=== PATIENT | male | born 1990 | race Caucasian/White ===

== ENCOUNTER 2019-12-24 23:13 | Emergency (ER) | payer MEDICAID ==
--- NOTE | 2019-12-25 00:16 | EDM.PDOC ---
ED HPI GENERAL MEDICAL PROBLEM - General Chief Complaint: Abdominal Pain Stated Complaint: ABDOMINAL PAIN Time Seen by Provider: 12/25/19 00:15 - History of Present Illness INITIAL COMMENTS - FREE TEXT/NARRATIVE: 29-year-old male presents the emergency room with abdominal pain. This pain is been progressing for the last 4 to 5 hours. Is periumbilical and midepigastric in nature. It is not associated with any nausea or vomiting he did have a loose stool today and he has no recent history of constipation. He does get heartburn intermittently Tums does not seem to help too much. 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 Middle Abdomen Pain Score (Numeric/FACES): 8 - Related Data Allergies Allergy/AdvReac Type Severity Reaction Status Date / Time codeine Allergy Hives Verified 12/24/19 23:41 Home Meds: Home Meds Lansoprazole [Prevacid] 30 mg PO Q24H #30 capsule. 12/25/19 [Rx] Sucralfate [Carafate] 1 gm PO ASDIRECTED #24 tablet 12/25/19 [Rx] Past Medical History Musculoskeletal History: Reports: Back Pain, Chronic, Other (See Below) Other Musculoskeletal History: neurofibromitosis type 2 - Past Surgical History GI Surgical History: Reports: Appendectomy, Cholecystectomy Musculoskeletal Surgical History: Reports: Other (See Below) Other Musculoskeletal Surgeries/Procedures:: left FA surgery Social & Family History - Tobacco Use Smoking Status *Q: Current Some Day Smoker Years of Tobacco use: 7 Packs/Tins Daily: 0.5 - Caffeine Use Caffeine Use: Reports: Coffee, Energy Drinks, Soda, Tea - Recreational Drug Use Recreational Drug Use: No ED ROS GENERAL - Review of Systems Review Of Systems: See Below Constitutional: Reports: No Symptoms HEENT: Reports: No Symptoms Respiratory: Reports: No Symptoms Cardiovascular: Reports: No Symptoms GI/Abdominal: Reports: Abdominal Pain, Diarrhea. Denies: Constipation, Nausea, Vomiting : Reports: No Symptoms Musculoskeletal: Reports: No Symptoms Skin: Reports: No Symptoms Neurological: Reports: No Symptoms ED EXAM, GI/ABD - Physical Exam Exam: See Below Exam Limited By: No Limitations General Appearance: Alert, No Apparent Distress Head: Atraumatic, Normocephalic Neck: Normal Inspection, Supple, Non-Tender, Full Range of Motion. No: Lymphadenopathy (L), Lymphadenopathy (R) Respiratory/Chest: No Respiratory Distress, Lungs Clear, Normal Breath Sounds Cardiovascular: Regular Rate, Rhythm, No Edema, No Murmur GI/Abdominal Exam: Normal Bowel Sounds, Soft, Tender (It is mostly in the periumbilical and epigastric area no guarding rigidity or rebound noted he has what is consistent with pain pump left lower quadrant) Back Exam: Normal Inspection. No: CVA Tenderness (L), CVA Tenderness (R) Extremities: Normal Inspection, No Pedal Edema Neurological: Alert, Oriented, Normal Cognition Course - Vital Signs Last Recorded V/S: Last Vital Signs Temp 36.0 C L 12/24/19 23:38 Pulse 95 12/24/19 23:38 Resp 20 12/24/19 23:38 BP 133/97 H 12/24/19 23:38 Pulse Ox 97 12/24/19 23:38 - Orders/Labs/Meds Orders: Active Orders 24 hr Category Date Time Status Abdomen 2V AP Flat Upright [CR] Stat Exams 12/25/19 00:26 Taken Labs: Laboratory Tests 12/25/19 12/25/19 12/25/19 Range/Units 00:45 00:45 01:00 WBC 12.48 H (4.23-9.07) K/mm3 RBC 6.08 (4.63-6.08) M/mm3 Hgb 17.6 H (13.7-17.5) gm/dl Hct 51.0 (40.1-51.0) % MCV 83.9 (79.0-92.2) fl MCH 28.9 (25.7-32.2) pg MCHC 34.5 (32.2-35.5) g/dl RDW Std Deviation 41.8 (35.1-43.9) fL Plt Count 274 (163-337) K/mm3 MPV 9.7 (9.4-12.3) fl Neut % (Auto) 67.6 (34.0-67.9) % Lymph % (Auto) 20.2 L (21.8-53.1) % [place] % (Auto) 7.5 (5.3-12.2) % Eos % (Auto) 4.1 (0.8-7.0) Baso % (Auto) 0.4 (0.1-1.2) % Neut # (Auto) 8.45 H (1.78-5.38) K/mm3 Lymph # (Auto) 2.52 (1.32-3.57) K/mm3 [place] # (Auto) 0.93 H (0.30-0.82) K/mm3 Eos # (Auto) 0.51 (0.04-0.54) K/mm3 Baso # (Auto) 0.05 (0.01-0.08) K/mm3 Manual Slide Review Abnormal smear Sodium 140 (136-145) mEq/L Potassium 3.9 (3.5-5.1) mEq/L Chloride 105 (98-107) mEq/L Carbon Dioxide 25 (21-32) mEq/L Anion Gap 13.9 (5-15) BUN 17 (7-18) mg/dL Creatinine 0.8 (0.7-1.3) mg/dL Est Cr Clr Drug Dosing 138.14 mL/min Estimated GFR (MDRD) > 60 (>60) mL/min BUN/Creatinine Ratio 21.3 H (14-18) Glucose 94 (74-106) mg/dL Calcium 9.4 (8.5-10.1) mg/dL Total Bilirubin 0.3 (0.2-1.0) mg/dL AST 10 L (15-37) U/L ALT 20 (16-63) U/L Alkaline Phosphatase 74 (46-116) U/L Total Protein 7.2 (6.4-8.2) g/dl Albumin 4.1 (3.4-5.0) g/dl Globulin 3.1 gm/dL Albumin/Globulin Ratio 1.3 (1-2) Lipase 50 L (73-393) U/L Urine Color Yellow (Yellow) Urine Appearance Clear (Clear) Urine pH 6.0 (5.0-8.0) Ur Specific [place] > or = 1.030 (1.005-1.030) Urine Protein Negative (Negative) Urine Glucose (UA) Negative (Negative) Urine Ketones Trace H (Negative) Urine Occult Blood Negative (Negative) Urine Nitrite Negative (Negative) Urine Bilirubin Negative (Negative) Urine Urobilinogen 0.2 (0.2-1.0) Ur Leukocyte Esterase Negative (Negative) Meds: Medications Discontinued Medications Generic Name Dose Route Start Last Admin Trade Name Freq PRN Reason Stop Dose Admin Al Hydroxide/Mg Hydroxide 30 0 ml 12/25/19 00:28 12/25/19 00:47 ml/ Lidocaine HCl 15 ml PO 12/25/19 00:29 45 ml ONETIME ONE Administration - Re-Assessments/Exams Free Text/Narrative Re-Assessment/Exam: 12/25/19 01:54 The patient is doing much better after the GI cocktail and we will discharge him home with Carafate and start PPI therapy. Laboratory evaluation is unrevealing x-rays of his abdomen showed no acute intra-abdominal process he is got a pain pump in place and a nerve stimulator in place. Departure - Departure Time of Disposition: 01:56 [facility] 05 Clinical Impression: Dyspepsia - Discharge Information Prescriptions: Lansoprazole [Prevacid] 30 mg PO Q24H #30 capsule. Sucralfate [Carafate] 1 gm PO ASDIRECTED #24 tablet Referrals: PCP,None [Primary Care Provider] - Forms: ED Department Discharge Additional Instructions: Return to the emergency room with any questions problems or worsening symptoms. Follow-up in the hospital clinic in 2 weeks for recheck. Take the medications as directed. Sepsis Event Note - Evaluation Sepsis Screening Result: No Definite Risk - Focused Exam Vital Signs: Vital Signs Temp Pulse Resp BP Pulse Ox 12/24/19 23:38 36.0 C L 95 20 133/97 H 97 Date Exam was Performed: 12/25/19 Time Exam was Performed: 01:54 - My Orders Last 24 Hours: My Active Orders 12/25/19 00:26 Abdomen 2V AP Flat Upright [CR] Stat - Assessment/Plan Last 24 Hours: My Active Orders 12/25/19 00:26 Abdomen 2V AP Flat Upright [CR] Stat
[2019-12-25] MEDS ORDERED: Alum Hydrox/Mag Hydrox/Simeth 30 ML, Lidocaine 2% 15 ML PO ONE ×2 (00:28)
[2019-12-25] MEDS ORDERED: Sucralfate Suspension 1 GM/10 ML Cup PO ONE (01:55)
--- NOTE | 2019-12-25 08:39 | CR ---
Abdomen: Supine and upright views of the abdomen were obtained. Comparison: No prior abdominal imaging. Electro-stimulating device is noted within the lower thoracic spine. Surgical clips are seen from previous cholecystectomy. Several calcifications are seen within the lower right pelvis compatible with phleboliths. No other abnormal calcifications are appreciated. Minimal scoliosis is noted within the spine. Bowel gas pattern is normal. Impression: 1. Findings as noted above. 2. Nothing acute is appreciated on two-view abdominal x-ray. Diagnostic code #2 This report was dictated in [place] Standard Time
== END 2019-12-25 02:06 | disposition home or self-care (01) ==
LOC: JD.ED 23:13
DX: R06.00 Dyspnea, unspecified (principal); F17.210 Nicotine dependence, cigarettes, uncomplicated; Z88.5 Allergy status to narcotic agent
CPT/HCPCS: 36415; 74019; 80053; 81003; 83690; 85025; 99284; A9270; 99283

== ENCOUNTER 2020-02-18 12:48 | Emergency (ER) | payer MEDICAID ==
--- NOTE | 2020-02-18 13:20 | EDM.PDOC ---
ED HPI GENERAL MEDICAL PROBLEM - General Chief Complaint: Genitourinary Problem Stated Complaint: UNABLE TO URINATE Time Seen by Provider: 02/18/20 13:10 - History of Present Illness INITIAL COMMENTS - FREE TEXT/NARRATIVE: 29-year-old male presents the emergency room unable to void. Patient noticed this this morning. He is attempted to void but only dribbles. Patient has a significant history of neurofibromatosis he recently had his pain pump changed from fentanyl to morphine. Patient does not have any ambulatory issues and is never had any problems with bowel or bladder control issues. He denies fevers or chills no significant discomfort. He denies fevers or chills no recent illnesses. Back Pain Score (Numeric/FACES): 9 - Related Data Allergies Allergy/AdvReac Type Severity Reaction Status Date / Time codeine Allergy Hives Verified 12/24/19 23:41 Home Meds: Home Meds Cyclobenzaprine [Flexeril] 10 mg PO DAILY 02/18/20 [History] Morphine Pump 1 applic DAILY 02/18/20 [History] Past Medical History Musculoskeletal History: Reports: Back Pain, Chronic, Other (See Below) Other Musculoskeletal History: neurofibromitosis type 2 - Past Surgical History GI Surgical History: Reports: Appendectomy, Cholecystectomy Musculoskeletal Surgical History: Reports: Other (See Below) Other Musculoskeletal Surgeries/Procedures:: left FA surgery Social & Family History - Caffeine Use Caffeine Use: Reports: Coffee, Energy Drinks, Soda, Tea ED ROS GENERAL - Review of Systems Review Of Systems: See Below Constitutional: Reports: No Symptoms. Denies: Fever, Chills Respiratory: Reports: No Symptoms Cardiovascular: Reports: No Symptoms GI/Abdominal: Reports: No Symptoms : Reports: Frequency, Urinary Retention Musculoskeletal: Reports: No Symptoms Neurological: Reports: No Symptoms ED EXAM, RENAL/ - Physical Exam Exam: See Below Exam Limited By: No Limitations General Appearance: Alert, No Apparent Distress Head: Atraumatic, Normocephalic Neck: Normal Inspection, Supple, Non-Tender, Full Range of Motion Respiratory/Chest: No Respiratory Distress, Lungs Clear, Normal Breath Sounds Cardiovascular: Regular Rate, Rhythm, No Edema, No Murmur GI/Abdominal: Normal Bowel Sounds, Soft, Other (Normal suprapubic discomfort no significant distention.) Back Exam: Normal Inspection. No: CVA Tenderness (L), CVA Tenderness (R) Extremities: Normal Inspection, Normal Range of Motion, Non-Tender Neurological: Alert, Oriented, Normal Cognition Course - Vital Signs Last Recorded V/S: Last Vital Signs Temp 37.1 C 02/18/20 13:20 Pulse 93 02/18/20 13:20 Resp 20 02/18/20 13:20 BP 127/86 02/18/20 13:20 Pulse Ox 98 02/18/20 13:20 - Orders/Labs/Meds Orders: Active Orders 24 hr Category Date Time Status Bladder Scan [RC] ASDIRECTED Care 02/18/20 13:20 Active Labs: Laboratory Tests 02/18/20 02/18/20 02/18/20 Range/Units 13:35 13:35 16:20 WBC 9.12 H (4.23-9.07) K/mm3 RBC 6.06 (4.63-6.08) M/mm3 Hgb 17.7 H (13.7-17.5) gm/dl Hct 50.7 (40.1-51.0) % MCV 83.7 (79.0-92.2) fl MCH 29.2 (25.7-32.2) pg MCHC 34.9 (32.2-35.5) g/dl RDW Std Deviation 41.3 (35.1-43.9) fL Plt Count 291 (163-337) K/mm3 MPV 10.0 (9.4-12.3) fl Neut % (Auto) 60.5 (34.0-67.9) % Lymph % (Auto) 28.3 (21.8-53.1) % [place] % (Auto) 8.6 (5.3-12.2) % Eos % (Auto) 2.0 (0.8-7.0) Baso % (Auto) 0.5 (0.1-1.2) % Neut # (Auto) 5.52 H (1.78-5.38) K/mm3 Lymph # (Auto) 2.58 (1.32-3.57) K/mm3 [place] # (Auto) 0.78 (0.30-0.82) K/mm3 Eos # (Auto) 0.18 (0.04-0.54) K/mm3 Baso # (Auto) 0.05 (0.01-0.08) K/mm3 Sodium 139 (136-145) mEq/L Potassium 3.9 (3.5-5.1) mEq/L Chloride 104 (98-107) mEq/L Carbon Dioxide 25 (21-32) mEq/L Anion Gap 13.9 (5-15) BUN 11 (7-18) mg/dL Creatinine 0.9 (0.7-1.3) mg/dL Est Cr Clr Drug Dosing 126.66 mL/min Estimated GFR (MDRD) > 60 (>60) mL/min BUN/Creatinine Ratio 12.2 L (14-18) Glucose 89 (74-106) mg/dL Calcium 8.8 (8.5-10.1) mg/dL Total Bilirubin 0.4 (0.2-1.0) mg/dL AST 11 L (15-37) U/L ALT 21 (16-63) U/L Alkaline Phosphatase 77 (46-116) U/L Total Protein 7.4 (6.4-8.2) g/dl Albumin 4.1 (3.4-5.0) g/dl Globulin 3.3 gm/dL Albumin/Globulin Ratio 1.2 (1-2) Urine Color Yellow (Yellow) Urine Appearance Clear (Clear) Urine pH 5.5 (5.0-8.0) Ur Specific [place] > or = 1.030 (1.005-1.030) Urine Protein Negative (Negative) Urine Glucose (UA) Negative (Negative) Urine Ketones Negative (Negative) Urine Occult Blood Negative (Negative) Urine Nitrite Negative (Negative) Urine Bilirubin 1+ H (Negative) Urine Urobilinogen 0.2 (0.2-1.0) Ur Leukocyte Esterase Negative (Negative) Meds: Medications Discontinued Medications Generic Name Dose Route Start Last Admin Trade Name Freq PRN Reason Stop Dose Admin Lactated Ringer's 1,000 mls @ 999 mls/hr 02/18/20 14:02 02/18/20 14:17 Ringers, Lactated IV 02/18/20 15:02 999 mls/hr .BOLUS ONE Administration Lactated Ringer's 1,000 mls @ 999 mls/hr 02/18/20 16:30 02/18/20 16:42 Ringers, Lactated IV 02/18/20 17:30 999 mls/hr .BOLUS ONE Administration - Re-Assessments/Exams Free Text/Narrative Re-Assessment/Exam: 02/18/20 14:09 Bladder scan is only 130 cc this was repeated several times. We will try some IV fluids still awaiting labs 02/18/20 18:03 We gave the patient a total of 2 L IV fluid. We did get a urine. This was not suggestive of infectious process. I suspect a lot of his issues are coming from his morphine pain pump they may need to back the dose off I am not sure he is feeling exactly what is going on also is not drinking enough fluids. Reviewed the situation with Dr. Anthony, urologist at [facility] who agrees with the evaluation and disposition. Departure - Departure Time of Disposition: 18:04 Disposition: Home, Self-Care 01 Clinical Impression: Urinary problem in male - Discharge Information Referrals: Mariajose Sanches MD [Primary Care Provider] - Forms: ED Department Discharge Additional Instructions: Turn to the emergency room with any questions problems or worsening symptoms. Call your pain doctor tomorrow and see if maybe decreasing the morphine might help a little bit. Push lots of fluids preferably non-caffeinated and do not get too much sugar with the fluids. Follow-up with your local healthcare provider early next week for recheck. Sepsis Event Note - Focused Exam Vital Signs: Vital Signs Temp Pulse Resp BP Pulse Ox 02/18/20 13:20 37.1 C 93 20 127/86 98 Date Exam was Performed: 02/18/20 Time Exam was Performed: 18:02 - My Orders Last 24 Hours: My Active Orders 02/18/20 13:20 Bladder Scan [RC] ASDIRECTED - Assessment/Plan Last 24 Hours: My Active Orders 02/18/20 13:20 Bladder Scan [RC] ASDIRECTED
[2020-02-18] MEDS ORDERED: Lactated Ringers 1,000 ML IV ONE ×2 (14:02→16:30)
== END 2020-02-18 18:14 | disposition home or self-care (01) ==
LOC: JD.ED 12:48
DX: N39.8 Other specified disorders of urinary system (principal); Z88.5 Allergy status to narcotic agent; Z90.49 Acquired absence of other specified parts of digestive tract
CPT/HCPCS: 36415; 51798; 80053; 81003; 85025; 99283; J7120

== ENCOUNTER 2020-04-29 20:58 | Emergency (ER) | payer MEDICAID ==
[2020-04-29] MEDS ORDERED: Ketorolac 60 MG/2 ML SDV IM ONE (21:09)
--- NOTE | 2020-04-29 21:11 | EDM.PDOC ---
ED HPI GENERAL MEDICAL PROBLEM - General Chief Complaint: Headache Stated Complaint: HEADACHE/BLURRY VISION Time Seen by Provider: 04/29/20 21:09 Source of Information: Reports: Patient History Limitations: Reports: No Limitations - History of Present Illness INITIAL COMMENTS - FREE TEXT/NARRATIVE: The patient is an unfortunate 29-year-old male who presents the emerge ncy department today with complaint of a frontal headache. Patient reports that this headache started 2 hours prior to arrival and is "similar to previous headaches". Patient reports he has had no nausea no vomiting no fever no chills no cough no congestion no shortness of breath no other neurologic symptoms the patient reports that he did take Aleve at home which normally alleviates his headaches time it did not so he came to the emergency department for evaluation Headache Pain Score (Numeric/FACES): 10 - Related Data Allergies Allergy/AdvReac Type Severity Reaction Status Date / Time codeine Allergy Severe Hives Verified 04/29/20 21:08 Home Meds: Home Meds Cyclobenzaprine [Flexeril] 10 mg PO DAILY 02/18/20 [History] Morphine Pump 1 applic DAILY 02/18/20 [History] Tamsulosin [Flomax] 0.4 mg PO DAILY 04/29/20 [History] Past Medical History Musculoskeletal History: Reports: Back Pain, Chronic, Other (See Below) Other Musculoskeletal History: neurofibromitosis type 2 - Past Surgical History GI Surgical History: Reports: Appendectomy, Cholecystectomy Musculoskeletal Surgical History: Reports: Other (See Below) Other Musculoskeletal Surgeries/Procedures:: left FA surgery Social & Family History - Caffeine Use Caffeine Use: Reports: Coffee, Energy Drinks, Soda, Tea ED ROS GENERAL - Review of Systems Review Of Systems: See Below Constitutional: Denies: Fever, Chills GI/Abdominal: Denies: Nausea, Vomiting Neurological: Reports: Headache - Physical Exam Exam: See Below Exam Limited By: No Limitations General Appearance: Alert, WD/WN, Mild Distress Ears: Normal External Exam, Normal Canal, Hearing Grossly Normal, Normal TMs Nose: Normal Inspection, Normal Mucosa, No Blood Head Exam: Atraumatic, Normocephalic Neck: Normal Inspection, Supple, Non-Tender, Full Range of Motion Respiratory/Chest: No Respiratory Distress, Lungs Clear, Normal Breath Sounds, No Accessory Muscle Use, Chest Non-Tender Cardiovascular: Normal Peripheral Pulses, Regular Rate, Rhythm, No Edema, No Gallop, No JVD, No Murmur, No Rub GI/Abdominal: Normal Bowel Sounds, Soft, Non-Tender, No Organomegaly, No Distention, No Abnormal Bruit, No Mass Neuro Exam (Abbreviated): Alert, Oriented, CN II-XII Intact, Normal Cognition, Normal Gait, Normal Reflexes, No Motor/Sensory Deficits Extremities: Normal Inspection Skin Exam: Warm, Dry Course - Vital Signs Last Recorded V/S: Last Vital Signs Temp 98.2 F 04/29/20 21:14 Pulse 89 04/29/20 21:14 Resp 20 04/29/20 21:14 BP 126/87 04/29/20 21:14 Pulse Ox 98 04/29/20 21:14 - Orders/Labs/Meds Meds: Medications Discontinued Medications Generic Name Dose Route Start Last Admin Trade Name Kimberly PRN Reason Stop Dose Admin Ketorolac Tromethamine 60 mg 04/29/20 21:09 04/29/20 21:20 Toradol IM 04/29/20 21:10 60 mg ONETIME ONE Administration - Re-Assessments/Exams Free Text/Narrative Re-Assessment/Exam: 04/29/20 21:43 His pain is resolved we will discharged home Departure - Departure Time of Disposition: 21:43 Disposition: Home, Self-Care 01 Clinical Impression: Headache Qualifiers: Headache type: unspecified Headache chronicity pattern: acute headache Intractability: not intractable Qualified Code(s): R51 - Headache - Discharge Information Referrals: PCP,None [Primary Care Provider] - Forms: ED Department Discharge Additional Instructions: Home, rest, return as needed for worsening condition Sepsis Event Note (ED) - Focused Exam Vital Signs: Vital Signs Temp Pulse Resp BP Pulse Ox 04/29/20 21:14 98.2 F 89 20 126/87 98
== END 2020-04-29 21:54 | disposition home or self-care (01) ==
LOC: JD.ED 20:58
DX: R51 Headache (principal); Z88.5 Allergy status to narcotic agent; Z79.899 Other long term (current) drug therapy
CPT/HCPCS: 96372; 99283; J1885

== ENCOUNTER 2020-04-30 12:15 | Emergency (ER) | payer MEDICAID ==
[2020-04-30] MEDS ORDERED: Metoclopramide 10 MG/2 ML SDV IVPUSH ONE (12:24)
[2020-04-30] MEDS ORDERED: Sodium Chloride 0.9% 10 ML Syringe FLUSH PRN (12:24)
[2020-04-30] MEDS ORDERED: diphenhydrAMINE 50 MG/ML SDV IVPUSH ONE (12:24)
[2020-04-30] MEDS ORDERED: Sodium Chloride 0.9% 1,000 ML IV ONE (12:24)
--- NOTE | 2020-04-30 12:34 | EDM.PDOC ---
ED HPI GENERAL MEDICAL PROBLEM - General Chief Complaint: Headache Stated Complaint: HEADACHE Time Seen by Provider: 04/30/20 12:32 Source of Information: Reports: Patient History Limitations: Reports: No Limitations - History of Present Illness INITIAL COMMENTS - FREE TEXT/NARRATIVE: The patient is an unfortunate 29-year-old male who presents to the emergency department they with complaint of headache. Patient reports he has had headache for the past 2 days he was seen here in the emergency department yesterday was given a shot of Toradol which improved his symptoms and he was discharged home. The patient reports that he has neurofibromatosis and has had tumor in the past. The patient reports that he awoke approximately 4 AM this morning the headache had returned worsen so he presented again to the emergency department today for reevaluation no fever, no chills, no chest pain, no hemiplegia, no blurred vision, no chest pain, no shortness of breath patient reports his headache is "similar to previous headaches". 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 Musculoskeletal History: Reports: Back Pain, Chronic, Other (See Below) Other Musculoskeletal History: neurofibromitosis type 2 - Past Surgical History GI Surgical History: Reports: Appendectomy, Cholecystectomy Musculoskeletal Surgical History: Reports: Other (See Below) Other Musculoskeletal Surgeries/Procedures:: left FA surgery Social & Family History - Family History Family Medical History: Noncontributory - Tobacco Use Smoking Status *Q: Current Every Day Smoker Years of Tobacco use: 10 Packs/Tins Daily: 0.5 - Caffeine Use Caffeine Use: Reports: Coffee, Energy Drinks, Soda, Tea ED ROS GENERAL - Review of Systems Review Of Systems: See Below Constitutional: Denies: Fever, Chills Neurological: Reports: Headache. Denies: Confusion, Dizziness - Physical Exam Exam: See Below Exam Limited By: No Limitations General Appearance: Alert, WD/WN, Mild Distress Ears: Normal External Exam, Normal Canal, Hearing Grossly Normal, Normal TMs Nose: Normal Inspection, Normal Mucosa, No Blood Head Exam: Atraumatic, Normocephalic Neck: Normal Inspection, Supple, Non-Tender, Full Range of Motion Respiratory/Chest: No Respiratory Distress, Lungs Clear, Normal Breath Sounds, No Accessory Muscle Use, Chest Non-Tender Cardiovascular: Normal Peripheral Pulses, Regular Rate, Rhythm, No Edema, No Gallop, No JVD, No Murmur, No Rub GI/Abdominal: Normal Bowel Sounds, Soft, Non-Tender, No Organomegaly, No Distention, No Abnormal Bruit, No Mass Neuro Exam (Abbreviated): Alert, Oriented, CN II-XII Intact, Normal Cognition, Normal Gait, Normal Reflexes, No Motor/Sensory Deficits Extremities: Normal Inspection, Normal Range of Motion, Non-Tender, No Pedal Vance ma, Normal Capillary Refill Skin Exam: Warm, Dry Course - Vital Signs Last Recorded V/S: Last Vital Signs Temp 97.9 F 04/30/20 12:23 Pulse 90 04/30/20 12:23 Resp 16 04/30/20 12:23 BP 132/89 04/30/20 12:23 Pulse Ox 95 04/30/20 12:23 - Orders/Labs/Meds Orders: Active Orders 24 hr Category Date Time Status Sodium Chloride 0.9% [Saline Flush] Med 04/30/20 12:24 Active 10 ml FLUSH ASDIRECTED PRN Saline Lock Insert [OM.PC] Stat Oth 04/30/20 12:23 Ordered Medication Orders Sodium Chloride (Saline Flush) 10 ml FLUSH ASDIRECTED PRN PRN Reason: Keep Vein Open Last Admin: 04/30/20 12:47 Dose: 10 ml Documented by: BROCK Meds: Medications Generic Name Dose Route Start Last Admin Trade Name Freq PRN Reason Stop Dose Admin Sodium Chloride 10 ml 04/30/20 12:24 04/30/20 12:47 Saline Flush FLUSH 10 ml ASDIRECTED PRN Administration Keep Vein Open Discontinued Medications Generic Name Dose Route Start Last Admin Trade Name Freq PRN Reason Stop Dose Admin Diphenhydramine HCl 25 mg 04/30/20 12:24 04/30/20 12:47 Benadryl IVPUSH 04/30/20 12:25 25 mg ONETIME ONE Administration Sodium Chloride 1,000 mls @ 1,000 mls/hr 04/30/20 12:24 04/30/20 12:42 Normal Saline IV 04/30/20 13:23 1,000 mls/hr ONETIME ONE Administration Metoclopramide HCl 10 mg 04/30/20 12:24 04/30/20 12:44 Reglan IVPUSH 04/30/20 12:25 10 mg ONETIME ONE Administration - Radiology Interpretation Free Text/Narrative:: CT head shows "impression: #1 prominent cisterna magna believed to represent normal variant. #2 sinus findings which are most likely chronic. #3 no acute intracranial abnormality is appreciated." Departure - Departure Time of Disposition: 13:32 Disposition: Home, Self-Care 01 Condition: Good Clinical Impression: Migraine - Discharge Information Referrals: PCP,None [Primary Care Provider] - Forms: ED Department Discharge Additional Instructions: Home, rest, return as needed for worsening condition Sepsis Event Note (ED) - Evaluation Sepsis Screening Result: No Definite Risk - Focused Exam Vital Signs: Vital Signs Temp Pulse Resp BP Pulse Ox 04/30/20 12:23 97.9 F 90 16 132/89 95 - My Orders Last 24 Hours: My Active Orders 04/30/20 12:23 Saline Lock Insert [OM.PC] Stat 04/30/20 12:24 Sodium Chloride 0.9% [Saline Flush] 10 ml FLUSH ASDIRECTED PRN - Assessment/Plan Last 24 Hours: My Active Orders 04/30/20 12:23 Saline Lock Insert [OM.PC] Stat 04/30/20 12:24 Sodium Chloride 0.9% [Saline Flush] 10 ml FLUSH ASDIRECTED PRN
--- NOTE | 2020-04-30 13:28 | CT ---
Head CT Technique: Multiple axial sections through the brain were obtained. Intravenous contrast was not utilized. Comparison: No prior intracranial imaging is available. Findings: Prominent cisterna magna is seen which is felt to be a normal variant. Ventricles along with basal cisterns and sulci over the convexities are within normal limits. No abnormal parenchymal densities are seen. No evidence of intracranial hemorrhage. No midline shift or mass-effect is appreciated. Bone window settings were reviewed which shows mild mucosal thickening within the left frontal and ethmoid sinuses. No air-fluid levels are seen. No acute mastoid findings are seen. No acute calvarial abnormality is seen. Impression: 1. Prominent cisterna magna believed to represent normal variant. 2. Sinus findings which are most likely chronic. 3. No acute intracranial abnormality is appreciated. Diagnostic code #2 This report was dictated in MDT
== END 2020-04-30 14:04 | disposition home or self-care (01) ==
LOC: JD.ED 12:15
DX: G43.909 Migraine, unspecified, not intractable, without status migrainosus (principal); F17.210 Nicotine dependence, cigarettes, uncomplicated; Z88.5 Allergy status to narcotic agent; Z79.899 Other long term (current) drug therapy
CPT/HCPCS: 70450; 96374; 96375; 99284; J1200; J2765; J7030

== ENCOUNTER 2020-05-15 10:43 | Emergency (ER) | payer MEDICAID ==
[2020-05-15] MEDS ORDERED: Acetaminophen/Butalbital/Caffeine 325-50-40 MG Tab PO ONE (11:18)
--- NOTE | 2020-05-15 11:30 | EDM.PDOC ---
ED HPI GENERAL MEDICAL PROBLEM - General Chief Complaint: Headache Stated Complaint: MIGRAINE Time Seen by Provider: 05/15/20 11:04 Source of Information: Reports: Patient, Old Records, RN Notes Reviewed History Limitations: Reports: No Limitations - History of Present Illness INITIAL COMMENTS - FREE TEXT/NARRATIVE: Patient is a 29-year-old male who presents to the ED for the evaluation of a migraine. Patient notes that this developed yesterday at about 4 PM, he has tried Tylenol and Aleve for pain relief, but this is not provided much relief. Patient states he was unable to get much sleep last night due to the pain, he states he only slept about 3 to 4 hours. Patient notes that it is typical of his normal migraines, but seems to be a little bit more severe. He states he has very sensitive to light, but not sounds. He denies any nausea or vomiting, he is not had any fevers/chills, cough/shortness of breath. Patient notes he was seen in this ER around 30 April, with a similar type headache and was given Toradol/Benadryl/Reglan and it seemed to help pretty well. Patient notes that his headache is in the frontal portion of his head, and it feels like someone is pounding his head with a sledgehammer. 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 He has no other medications at home to control his migraines. 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 Genitourinary History: Reports: Prostate Disorder Musculoskeletal History: Reports: Back Pain, Chronic Neurological History: Reports: Other (See Below) Other Neuro History: neurofibromatosis type 2 - Past Surgical History GI Surgical History: Reports: Appendectomy, Cholecystectomy Musculoskeletal Surgical History: Reports: Other (See Below) Other Musculoskeletal Surgeries/Procedures:: left FA surgery Social & Family History - Family History Family Medical History: Noncontributory - Tobacco Use Smoking Status *Q: Current Every Day Smoker Years of Tobacco use: 15 Packs/Tins Daily: 0.5 - Caffeine Use Caffeine Use: Reports: Coffee, Soda - Recreational Drug Use Recreational Drug Use: No ED ROS GENERAL - Review of Systems Review Of Systems: Comprehensive ROS is negative, except as noted in HPI. - Physical Exam Exam: See Below Exam Limited By: No Limitations General Appearance: Alert, WD/WN, No Apparent Distress Eye Exam: Bilateral Eye: EOMI, Normal Inspection, PERRL Ears: Normal External Exam Nose: Normal Inspection Throat/Mouth: Normal Inspection Head Exam: Atraumatic, Normocephalic Neck: Normal Inspection Respiratory/Chest: No Respiratory Distress, Lungs Clear, Normal Breath Sounds, No Accessory Muscle Use, Chest Non-Tender Cardiovascular: Normal Peripheral Pulses, Regular Rate, Rhythm, No Murmur GI/Abdominal: Normal Bowel Sounds, Soft, Non-Tender, No Distention, No Mass Neuro Exam (Abbreviated): Alert, Oriented, CN II-XII Intact, Normal Cognition, No Motor/Sensory Deficits Extremities: Normal Inspection, Normal Capillary Refill Psychiatric: Normal Affect, Normal Mood Skin Exam: Warm, Dry, Intact, Normal Color, No Rash Course - Vital Signs Last Recorded V/S: Last Vital Signs Temp 98.3 F 05/15/20 10:52 Pulse 83 05/15/20 10:52 Resp 16 05/15/20 10:52 BP 144/81 H 05/15/20 10:52 Pulse Ox 94 L 05/15/20 10:52 - Orders/Labs/Meds Meds: Medications Discontinued Medications Generic Name Dose Route Start Last Admin Trade Name Freq PRN Reason Stop Dose Admin Acetaminophen/Butalbital/Caffeine 1 tab 05/15/20 11:18 05/15/20 11:25 Fioricet 325-50-40 Mg PO 05/15/20 11:19 1 tab ONETIME ONE Administration - Re-Assessments/Exams Free Text/Narrative Re-Assessment/Exam: 05/15/20 11:28 Patient presents to the ED for evaluation of his migraine, I did discuss options with him for treatment, and he would like to try Fioricet at this time, as he is tried many of the other medications available in this ER. If this works, I will try to get him a few tablets of this to take home so he can try to manage migraines at home. 05/15/20 12:09 Patient notes that he did get pretty good relief from the Fioricet. I will write a prescription for a few tablets of this, so he can hopefully get a hold of his neurologist for further evaluation and management. Departure - Departure Time of Disposition: 12:10 Disposition: Home, Self-Care 01 Condition: Good Clinical Impression: Headache Qualifiers: Headache type: unspecified Headache chronicity pattern: acute headache Intractability: not intractable Qualified Code(s): R51 - Headache - Discharge Information *PRESCRIPTION DRUG MONITORING PROGRAM REVIEWED*: Yes *COPY OF PRESCRIPTION DRUG MONITORING REPORT IN PATIENT BRIANA: No Instructions: General Headache Without Cause, [id number] Forms: ED Department Discharge Additional Instructions: You were evaluated in the ED for your headache. You were given a medication called Fioricet you have been given a prescription. This did seem to provide you pretty good relief of your symptoms. For this medication, to try to limit your headaches at home. You may take Fioricet at the onset of a headache, 1-2 tabs every 6 hours as needed, do not exceed more than 6 tabs per 24-hour time span. [facility] located near [facility], this pharmacy is only open from 12 to 4 PM on Sundays, you will need t o go there during this timeframe to obtain this medication and take as prescribed. Recommend that you go home and rest in a quiet, darkened room. Try also to keep well hydrated. Please return to the ED if your symptoms should change or worsen. Sepsis Event Note (ED) - Evaluation Sepsis Screening Result: No Definite Risk - Focused Exam Vital Signs: Vital Signs Temp Pulse Resp BP Pulse Ox 05/15/20 10:52 98.3 F 83 16 144/81 H 94 L
== END 2020-05-15 12:58 | disposition home or self-care (01) ==
LOC: JD.ED 10:43
DX: R51 Headache (principal); F17.210 Nicotine dependence, cigarettes, uncomplicated; Z88.5 Allergy status to narcotic agent; Z79.899 Other long term (current) drug therapy
CPT/HCPCS: 99283; A9270

== ENCOUNTER 2021-01-08 16:23 | Emergency (ER) | payer MEDICAID ==
[2021-01-08] MEDS ORDERED: Sodium Chloride 0.9% 10 ML Syringe FLUSH PRN (16:50)
[2021-01-08] MEDS ORDERED: diphenhydrAMINE 50 MG/ML SDV IVPUSH ONE (16:50)
[2021-01-08] MEDS ORDERED: Sodium Chloride 0.9% 1,000 ML IV ONE (16:50)
[2021-01-08] MEDS ORDERED: Metoclopramide 10 MG/2 ML SDV IVPUSH ONE (16:50)
[2021-01-08] MEDS ORDERED: Ketorolac 30 MG/ML SDV IVPUSH ONE (16:50)
--- NOTE | 2021-01-08 16:56 | EDM.PDOC ---
ED HPI GENERAL MEDICAL PROBLEM - General Chief Complaint: Headache Stated Complaint: BACK PAIN/MIGRAINE Time Seen by Provider: 01/08/21 16:41 Source of Information: Reports: Patient, RN Notes Reviewed History Limitations: Reports: No Limitations - History of Present Illness INITIAL COMMENTS - FREE TEXT/NARRATIVE: Patient is a 30-year-old male who presents to the ED for the evaluation of his migraine headache. He notes that this has been present for the last 5 hours. Patient does have a history of migraine headaches. 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 He does have a morphine pump for pain management. Is also complaining of a sharp stabbing pain in his left lower flank area he has not felt something like this before. He notes his headache is fairly typical for himself, not having any blurred vision or double vision, or any other neurological deficits. He has had no fevers or chills, cough or shortness of breath, or any other sick-like symptoms. He did try taking Tylenol at home but nothing seems to be working for him. 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 Genitourinary History: Reports: Prostate Disorder Musculoskeletal History: Reports: Back Pain, Chronic Other Musculoskeletal History: neurofibromitosis type 2 Neurological History: Reports: Other (See Below) Other Neuro History: neurofibromatosis type 2 - Past Surgical History GI Surgical History: Reports: Appendectomy, Cholecystectomy Musculoskeletal Surgical History: Reports: Other (See Below) Other Musculoskeletal Surgeries/Procedures:: left FA surgery Social & Family History - Family History Family Medical History: No Pertinent Family History - Tobacco Use Tobacco Use Status *Q: Current Every Day Tobacco User Years of Tobacco use: 21 Packs/Tins Daily: 0.5 - Caffeine Use Caffeine Use: Reports: Coffee, Soda - Recreational Drug Use Recreational Drug Use: No ED ROS GENERAL - Review of Systems Review Of Systems: Comprehensive ROS is negative, except as noted in HPI. - Physical Exam Exam: See Below Exam Limited By: No Limitations General Appearance: Alert, WD/WN, No Apparent Distress Respiratory/Chest: No Respiratory Distress, Lungs Clear, Normal Breath Sounds, No Accessory Muscle Use, Chest Non-Tender Cardiovascular: Normal Peripheral Pulses, Regular Rate, Rhythm, No Edema GI/Abdominal: Normal Bowel Sounds, Soft, Non-Tender, No Distention, No Mass Neuro Exam (Abbreviated): Alert, Oriented, Normal Cognition, No Motor/Sensory Deficits Extremities: Normal Inspection, Normal Capillary Refill Psychiatric: Normal Affect, Normal Mood Skin Exam: Warm, Dry, Intact, Normal Color, No Rash Course - Vital Signs Last Recorded V/S: Last Vital Signs Temp 98.2 F 01/08/21 16:38 Pulse 87 01/08/21 16:38 Resp 16 01/08/21 16:38 BP 137/87 01/08/21 16:38 Pulse Ox 96 01/08/21 16:38 - Orders/Labs/Meds Orders: Active Orders 24 hr Category Date Time Status Peripheral IV Care [RC] . DIRECTED Care 01/08/21 16:50 Ordered Sodium Chloride 0.9% [Saline Flush] Med 01/08/21 16:50 Ordered 10 ml FLUSH ASDIRECTED PRN Peripheral IV Insertion Adult [OM.PC] Routine Oth 01/08/21 16:50 Ordered Medication Orders Sodium Chloride (Sodium Chloride 0.9% 10 Ml Syringe) 10 ml FLUSH ASDIRECTED PRN PRN Reason: Keep Vein Open Last Admin: 01/08/21 17:04 Dose: 10 ml Documented by: ELSA Labs: Laboratory Tests 01/08/21 01/08/21 01/08/21 Range/Units 15:10 17:05 17:05 WBC 9.63 H (4.23-9.07) K/mm3 RBC 5.67 (4.63-6.08) M/mm3 Hgb 16.5 (13.7-17.5) gm/dl Hct 47.3 (40.1-51.0) % MCV 83.4 (79.0-92.2) fl MCH 29.1 (25.7-32.2) pg MCHC 34.9 (32.2-35.5) g/dl RDW Std Deviation 40.2 (35.1-43.9) fL Plt Count 281 (163-337) K/mm3 MPV 9.6 (9.4-12.3) fl Neut % (Auto) 63.7 (34.0-67.9) % Lymph % (Auto) 24.5 (21.8-53.1) % [place] % (Auto) 7.0 (5.3-12.2) % Eos % (Auto) 4.3 (0.8-7.0) Baso % (Auto) 0.4 (0.1-1.2) % Neut # (Auto) 6.14 H (1.78-5.38) K/mm3 Lymph # (Auto) 2.36 (1.32-3.57) K/mm3 [place] # (Auto) 0.67 (0.30-0.82) K/mm3 Eos # (Auto) 0.41 (0.04-0.54) K/mm3 Baso # (Auto) 0.04 (0.01-0.08) K/mm3 Sodium 143 (136-145) mEq/L Potassium 3.7 (3.5-5.1) mEq/L Chloride 106 (98-107) mEq/L Carbon Dioxide 26 (21-32) mEq/L Anion Gap 14.7 (5-15) BUN 13 (7-18) mg/dL Creatinine 0.8 (0.7-1.3) mg/dL Est Cr Clr Drug Dosing 141.19 mL/min Estimated GFR (MDRD) > 60 (>60) mL/min BUN/Creatinine Ratio 16.3 (14-18) Glucose 115 H (74-106) mg/dL Calcium 8.2 L (8.5-10.1) mg/dL Total Bilirubin 0.2 (0.2-1.0) mg/dL AST 12 L (15-37) U/L ALT 23 (16-63) U/L Alkaline Phosphatase 79 (46-116) U/L Total Protein 7.0 (6.4-8.2) g/dl Albumin 3.7 (3.4-5.0) g/dl Globulin 3.3 gm/dL Albumin/Globulin Ratio 1.1 (1-2) Urine Color Yellow (Yellow) Urine Appearance Clear (Clear) Urine pH 6.5 (5.0-8.0) Ur Specific [place] > or = 1.030 (1.005-1.030) Urine Protein Negative (Negative) Urine Glucose (UA) Negative (Negative) Urine Ketones Trace H (Negative) Urine Occult Blood Negative (Negative) Urine Nitrite Negative (Negative) Urine Bilirubin Negative (Negative) Urine Urobilinogen 0.2 (0.2-1.0) Ur Leukocyte Esterase Negative (Negative) Urine RBC 0-5 (0-5) /hpf Urine WBC 0-5 (0-5) /hpf Ur Epithelial Cells 0-5 (0-5) /hpf Urine Bacteria Few (FEW) /hpf Urine Mucus Few (FEW) /hpf Meds: Medications Generic Name Dose Route Start Last Admin Trade Name Freq PRN Reason Stop Dose Admin Sodium Chloride 10 ml 01/08/21 16:50 01/08/21 17:04 Sodium Chloride 0.9% 10 Ml Syringe FLUSH 10 ml ASDIRECTED PRN Administration Keep Vein Open Discontinued Medications Generic Name Dose Route Start Last Admin Trade Name Freq PRN Reason Stop Dose Admin Diphenhydramine HCl 25 mg 01/08/21 16:50 01/08/21 17:01 Diphenhydramine 50 Mg/Ml Sdv IVPUSH 01/08/21 16:51 25 mg ONETIME ONE Administration Sodium Chloride 1,000 mls @ 999 mls/hr 01/08/21 16:50 01/08/21 17:01 Normal Saline IV 01/08/21 17:50 999 mls/hr ASDIRECTED ONE Administration Ketorolac Tromethamine 30 mg 01/08/21 16:50 01/08/21 17:01 Ketorolac 30 Mg/Ml Sdv IVPUSH 01/08/21 16:51 30 mg ONETIME ONE Administration Metoclopramide HCl 10 mg 01/08/21 16:50 01/08/21 17:01 Metoclopramide 10 Mg/2 Ml Sdv IVPUSH 01/08/21 16:51 10 mg ONETIME ONE Administration - Re-Assessments/Exams Free Text/Narrative Re-Assessment/Exam: 01/08/21 16:55 Patient presents to the ED for his headache. We will get IV started given some IV medications, get some laboratory evaluation and urinalysis for management. If his urinalysis demonstrates blood in the urine, we will investigate more for a kidney stone type pain in nature. 01/08/21 18:00 Patient's laboratory evaluation essentially normal, urinalysis is negative for any infection. 01/08/21 18:17 Patient states he is feeling much better, will go ahead and discharge him home at this time. Departure - Departure Time of Disposition: 18:18 Disposition: Home, Self-Care 01 Condition: Good Clinical Impression: Migraine headache Qualifiers: Migraine type: other Status migrainosus presence: without status migrainosus Intractability: not intractable Qualified Code(s): G43.809 - Other migraine, not intractable, without status migrainosus Low back pain Qualifiers: Chronicity: acute Back pain laterality: left Sciatica presence: without sciatica Qualified Code(s): M54.5 - Low back pain - Discharge Information *PRESCRIPTION DRUG MONITORING PROGRAM REVIEWED*: No *COPY OF PRESCRIPTION DRUG MONITORING REPORT IN PATIENT BRIANA: No Instructions: Migraine Headache, [id number] Referrals: Mariajose Sanches [facility] [employer] [Primary Care Provider] - Forms: ED Department Discharge Additional Instructions: You were evaluated in the ED for your headache. You were given a combination of medications and IV fluid for management. This did seem to provide you pretty good relief of your symptoms. Recommend that you go home and rest in a quiet, darkened room. Try also to keep well hydrated. Laboratory evaluation was all within normal limits at today's visit. Please return to the ED if your symptoms should change or worsen. Sepsis Event Note (ED) - Evaluation Sepsis Screening Result: No Definite Risk - Focused Exam Vital Signs: Vital Signs Temp Pulse Resp BP Pulse Ox 01/08/21 16:38 98.2 F 87 16 137/87 96 - My Orders Last 24 Hours: My Active Orders 01/08/21 16:50 Peripheral IV Care [RC] . DIRECTED Sodium Chloride 0.9% [Saline Flush] 10 ml FLUSH ASDIRECTED PRN Peripheral IV Insertion Adult [OM.PC] Routine - Assessment/Plan Last 24 Hours: My Active Orders 01/08/21 16:50 Peripheral IV Care [RC] . DIRECTED Sodium Chloride 0.9% [Saline Flush] 10 ml FLUSH ASDIRECTED PRN Peripheral IV Insertion Adult [OM.PC] Routine
== END 2021-01-08 18:30 | disposition home or self-care (01) ==
LOC: JD.ED 16:23
DX: G43.809 Other migraine, not intractable, without status migrainosus (principal); M54.5 Low back pain; Z72.0 Tobacco use; Z88.5 Allergy status to narcotic agent
CPT/HCPCS: 36415; 80053; 81001; 85025; 96374; 96375; 99283; J1200; J1885; J2765; J7030; 99284

== ENCOUNTER 2022-04-12 17:38 | Emergency (ER) | payer MEDICAID | END 2022-04-12 19:53 | disposition home or self-care (01) | LOC: JD.ED 17:38 | DX: T18.128A Food in esophagus causing other injury, initial encounter (principal); F17.210 Nicotine dependence, cigarettes, uncomplicated; Z88.5 Allergy status to narcotic agent; Z28.310 Unvaccinated for COVID-19 | CPT/HCPCS: 99282; 99283 ==

== ENCOUNTER 2022-05-08 22:10 | Emergency (ER) | payer MEDICAID | END 2022-05-09 01:00 | disposition home or self-care (01) | LOC: JD.ED 22:10 | DX: S90.811A Abrasion, right foot, initial encounter (principal); K21.9 Gastro-esophageal reflux disease without esophagitis; Z88.5 Allergy status to narcotic agent; W22.09XA Striking against other stationary object, initial encounter | CPT/HCPCS: 36415; 73630-26-RT; 73630-RT; 80048; 85025; 86140; 99283 ==

== ENCOUNTER 2022-06-09 22:53 | Emergency (ER) | payer MEDICAID ==
[2022-06-09] MEDS ORDERED: Ondansetron 4 MG/2 ML SDV IVPUSH ONE (23:23)
[2022-06-09] MEDS ORDERED: HYDROmorphone 0.5 MG/0.5 ML Syringe IVPUSH ONE (23:23)
[2022-06-09] MEDS ORDERED: Sodium Chloride 0.9% 1,000 ML IV SCH (23:30)
== END 2022-06-10 02:50 | disposition home or self-care (01) ==
LOC: JD.ED 22:53
DX: R10.84 Generalized abdominal pain (principal); F17.210 Nicotine dependence, cigarettes, uncomplicated; Z88.5 Allergy status to narcotic agent
CPT/HCPCS: 36415; 74177; 80053; 83605; 83690; 83735; 85007; 85027; 96374; 96375; 99284; J1170; J2405; J7030

== ENCOUNTER 2024-03-07 18:05 | Emergency (ER) | payer MEDICAID ==
[2024-03-07 19:02] LABS: BASOPHILS ABSOLUTE AUTO 0.1 K/mm3 (0.0-0.2); BASOPHILS PERCENT AUTO 0.7 % (0.0-1.0); EOSINOPHILS ABSOLUTE AUTO 0.3 K/mm3 (0.0-0.4); EOSINOPHILS PERCENT AUTO 2.5 % (0.0-6.0); HEMATOCRIT 50.6 % (42.0-52.0); HEMOGLOBIN 17.6 gm/dl (14.0-18.0); IMMATURE GRAN ABSOLUTE AUTO 0.04 K/mm3 (0.00-0.05); IMMATURE GRAN PERCENT AUTO 0.3 % (0.0-0.4); LYMPHOCYTES ABSOLUTE AUTO 3.6 K/mm3 (1.0-4.8); LYMPHOCYTES PERCENT AUTO 30.6 % (24.0-44.0); MEAN CORPUSCULAR HEMOGLOBIN 29.2 pg (28.0-32.0); MEAN CORPUSCULAR HGB CONC 34.8 g/dl (32.0-36.0); MEAN CORPUSCULAR VOLUME 83.9 fl (83.0-99.0); MEAN PLATELET VOLUME 9.3 fl (9.4-12.4); MONOCYTES PERCENT AUTO 8.5 % (0.0-8.0); NEUTROPHILS ABSOLUTE AUTO 6.8 K/mm3 (1.8-7.7); NEUTROPHILS PERCENT AUTO 57.4 % (41.0-71.0); PLATELET COUNT,PLT 331 K/mm3 (150-400); RED BLOOD CELL COUNT 6.03 M/mm3 (4.52-5.90); WHITE BLOOD CELL COUNT,WBC 11.89 K/mm3 (3.9-11.3)
[2024-03-07] MEDS: Aspirin 81 MG Tab.Chew PO ONE (19:17)
[2024-03-07] MEDS: Sodium Chloride 0.9% 1,000 ML IV ONE (19:18)
[2024-03-07 19:33] LABS: A/G RATIO 1.1 (1-2); ALANINE AMINOTRANSFERASE,ALT 34 U/L (16-63); ALKALINE PHOSPHATASE 84 U/L (46-116); ANION GAP 12.7 (5-15); ASPARTATE AMNIOTRANSFERASE,AST 15 U/L (15-37); BILIRUBIN TOTAL 0.4 mg/dL (0.2-1.0); BLOOD UREA NITROGEN,BUN 11 mg/dL (7-18); CALCIUM 9.1 mg/dL (8.5-10.1); CARBON DIOXIDE,CO2 27 mEq/L (21-32); CHLORIDE,CL 105 mEq/L (98-107); CREATININE 1.1 mg/dL (0.7-1.3); EST CRCL DRUG DOSING (CG) 99.83 mL/min; ESTIMATED GFR 90 mL/min (>60); GLUCOSE RANDOM 80 mg/dL (70-99); POTASSIUM,K 3.7 mEq/L (3.5-5.1); PROTEIN TOTAL,TP 7.7 g/dl (6.4-8.2); SODIUM,NA 141 mEq/L (136-145)
[2024-03-07 19:40] LABS: TROPONIN I HIGH SENSITIVITY < 4 pg/mL (<=76)
== END 2024-03-07 21:37 | disposition home or self-care (01) ==
LOC: JD.ED 18:05
DX: R07.9 Chest pain, unspecified (principal); Z88.8 Allergy status to other drugs, medicaments and biological substances; Z79.899 Other long term (current) drug therapy; Z90.49 Acquired absence of other specified parts of digestive tract
CPT/HCPCS: 36415; 71045; 80053; 84484; 85025; 93005; 96360; 96361; 99285; A9270; J7030; 93010; 99283

== ENCOUNTER 2024-07-07 17:21 | Emergency (ER) | payer MEDICAID ==
[2024-07-07 18:17] LABS: BASOPHILS ABSOLUTE AUTO 0.1 K/mm3 (0.0-0.2); BASOPHILS PERCENT AUTO 0.7 % (0.0-1.0); EOSINOPHILS ABSOLUTE AUTO 0.6 K/mm3 (0.0-0.4); EOSINOPHILS PERCENT AUTO 3.6 % (0.0-6.0); HEMOGLOBIN 17.9 gm/dl (14.0-18.0); IMMATURE GRAN ABSOLUTE AUTO 0.06 K/mm3 (0.00-0.05); IMMATURE GRAN PERCENT AUTO 0.4 % (0.0-0.4); LYMPHOCYTES ABSOLUTE AUTO 2.5 K/mm3 (1.0-4.8); LYMPHOCYTES PERCENT AUTO 16.3 % (24.0-44.0); MEAN CORPUSCULAR HEMOGLOBIN 29.3 pg (28.0-32.0); MEAN CORPUSCULAR HGB CONC 35.1 g/dl (32.0-36.0); MEAN CORPUSCULAR VOLUME 83.6 fl (83.0-99.0); MEAN PLATELET VOLUME 9.3 fl (9.4-12.4); MONOCYTES PERCENT AUTO 6.5 % (0.0-8.0); NEUTROPHILS ABSOLUTE AUTO 11.1 K/mm3 (1.8-7.7); NEUTROPHILS PERCENT AUTO 72.5 % (41.0-71.0); PLATELET COUNT,PLT 285 K/mm3 (150-400); WHITE BLOOD CELL COUNT,WBC 15.38 K/mm3 (3.9-11.3)
[2024-07-07 18:28] LABS: CORONAVIRUS COVID-19 NAA NEGATIVE (NEGATIVE); INFLUENZA A NAA NEGATIVE (NEGATIVE); RESPIRATORY SYNCYTIAL VIR NAA NEGATIVE (NEGATIVE)
[2024-07-07 18:39] LABS: A/G RATIO 1.2 (1-2); ALBUMIN 3.8 g/dl (3.4-5.0); BILIRUBIN TOTAL 0.4 mg/dL (0.2-1.0); BUN/CREATININE RATIO 8.8 (14-18); CALCIUM 8.4 mg/dL (8.5-10.1); CREATININE 0.8 mg/dL (0.7-1.3); EST CRCL DRUG DOSING (CG) 137.27 mL/min; PROTEIN TOTAL,TP 7.1 g/dl (6.4-8.2)
== END 2024-07-07 19:28 | disposition home or self-care (01) ==
LOC: JD.ED 17:21
DX: J02.9 Acute pharyngitis, unspecified (principal); J06.9 Acute upper respiratory infection, unspecified; Z90.49 Acquired absence of other specified parts of digestive tract; F17.210 Nicotine dependence, cigarettes, uncomplicated; Z88.5 Allergy status to narcotic agent
CPT/HCPCS: 0241U; 36415; 71045; 80053; 85025; 86308; 87651; 99283

== ENCOUNTER 2024-07-19 08:17 | Emergency (ER) | payer MEDICAID ==
[2024-07-19] MEDS: Sodium Chloride 0.9% 1,000 ML IV SCH (08:57)
[2024-07-19 08:59] LABS: BASOPHILS ABSOLUTE AUTO 0.1 K/mm3 (0.0-0.2); BASOPHILS PERCENT AUTO 0.5 % (0.0-1.0); EOSINOPHILS ABSOLUTE AUTO 0.1 K/mm3 (0.0-0.4); EOSINOPHILS PERCENT AUTO 0.8 % (0.0-6.0); HEMATOCRIT 51.3 % (42.0-52.0); HEMOGLOBIN 17.8 gm/dl (14.0-18.0); IMMATURE GRAN ABSOLUTE AUTO 0.05 K/mm3 (0.00-0.05); IMMATURE GRAN PERCENT AUTO 0.4 % (0.0-0.4); LYMPHOCYTES ABSOLUTE AUTO 2.5 K/mm3 (1.0-4.8); LYMPHOCYTES PERCENT AUTO 21.3 % (24.0-44.0); MEAN CORPUSCULAR HGB CONC 34.7 g/dl (32.0-36.0); MEAN CORPUSCULAR VOLUME 83.7 fl (83.0-99.0); MEAN PLATELET VOLUME 9.5 fl (9.4-12.4); MONOCYTES ABSOLUTE AUTO 0.7 K/mm3 (0.0-0.8); MONOCYTES PERCENT AUTO 6.1 % (0.0-8.0); NEUTROPHILS ABSOLUTE AUTO 8.4 K/mm3 (1.8-7.7); NEUTROPHILS PERCENT AUTO 70.9 % (41.0-71.0); PLATELET COUNT,PLT 323 K/mm3 (150-400); RED BLOOD CELL COUNT 6.13 M/mm3 (4.52-5.90); WHITE BLOOD CELL COUNT,WBC 11.87 K/mm3 (3.9-11.3)
[2024-07-19 09:09] LABS: A/G RATIO 1.2 (1-2); ANION GAP 13.2 (5-15); BILIRUBIN TOTAL 0.3 mg/dL (0.2-1.0); BUN/CREATININE RATIO 13.3 (14-18); CALCIUM 8.5 mg/dL (8.5-10.1); CREATININE 0.9 mg/dL (0.7-1.3); EST CRCL DRUG DOSING (CG) 122.01 mL/min; POTASSIUM,K 4.2 mEq/L (3.5-5.1); PROTEIN TOTAL,TP 7.4 g/dl (6.4-8.2)
== END 2024-07-19 12:54 | disposition home or self-care (01) ==
LOC: JD.ED 08:17
DX: K52.9 Noninfective gastroenteritis and colitis, unspecified (principal); E86.0 Dehydration; F17.210 Nicotine dependence, cigarettes, uncomplicated; Z88.5 Allergy status to narcotic agent; Z79.899 Other long term (current) drug therapy; Z90.49 Acquired absence of other specified parts of digestive tract
CPT/HCPCS: 36415; 71045; 80053; 85025; 96360; 96361; 99284; J7030

== ENCOUNTER 2024-08-20 20:46 | Emergency (ER) | payer MEDICAID | END 2024-08-20 22:55 | disposition home or self-care (01) | LOC: JD.ED 20:46 | DX: M25.562 Pain in left knee (principal); E78.00 Pure hypercholesterolemia, unspecified; K21.9 Gastro-esophageal reflux disease without esophagitis; F17.210 Nicotine dependence, cigarettes, uncomplicated; Z90.49 Acquired absence of other specified parts of digestive tract; Z79.51 Long term (current) use of inhaled steroids; Z79.899 Other long term (current) drug therapy; Z79.891 Long term (current) use of opiate analgesic; Z88.5 Allergy status to narcotic agent | CPT/HCPCS: 73562-26-LT; 73562-LT; 99282; 99283 ==

== ENCOUNTER 2024-09-23 21:43 | Emergency (ER) | payer MEDICAID | END 2024-09-23 22:40 | disposition home or self-care (01) | LOC: JD.ED 21:43 | DX: Z03.89 Encounter for observation for other suspected diseases and conditions ruled out (principal); E78.00 Pure hypercholesterolemia, unspecified; K21.9 Gastro-esophageal reflux disease without esophagitis; F17.210 Nicotine dependence, cigarettes, uncomplicated; Z90.49 Acquired absence of other specified parts of digestive tract; Z79.899 Other long term (current) drug therapy; Z79.51 Long term (current) use of inhaled steroids; Z88.5 Allergy status to narcotic agent | CPT/HCPCS: 99282 ==

== ENCOUNTER 2024-11-09 18:54 | Emergency (ER) | payer MEDICAID ==
[2024-11-09] MEDS: Sodium Chloride 0.9% 10 ML Syringe FLUSH PRN (20:18)
[2024-11-09] MEDS: Sodium Chloride 0.9% 1,000 ML IV ONE (20:18)
[2024-11-09] MEDS: cefTRIAXone 1 GM Vial IVPUSH ONE (20:18)
[2024-11-09 20:23] LABS: BASOPHILS ABSOLUTE AUTO 0.1 K/mm3 (0.0-0.2); BASOPHILS PERCENT AUTO 0.5 % (0.0-1.0); EOSINOPHILS PERCENT AUTO 0.2 % (0.0-6.0); HEMATOCRIT 52.4 % (42.0-52.0); HEMOGLOBIN 18.3 gm/dl (14.0-18.0); IMMATURE GRAN ABSOLUTE AUTO 0.05 K/mm3 (0.00-0.05); IMMATURE GRAN PERCENT AUTO 0.5 % (0.0-0.4); LYMPHOCYTES ABSOLUTE AUTO 0.6 K/mm3 (1.0-4.8); LYMPHOCYTES PERCENT AUTO 5.3 % (24.0-44.0); MEAN CORPUSCULAR HEMOGLOBIN 29.5 pg (28.0-32.0); MEAN CORPUSCULAR HGB CONC 34.9 g/dl (32.0-36.0); MEAN CORPUSCULAR VOLUME 84.5 fl (83.0-99.0); MEAN PLATELET VOLUME 9.3 fl (9.4-12.4); MONOCYTES ABSOLUTE AUTO 0.5 K/mm3 (0.0-0.8); MONOCYTES PERCENT AUTO 4.9 % (0.0-8.0); NEUTROPHILS ABSOLUTE AUTO 9.7 K/mm3 (1.8-7.7); NEUTROPHILS PERCENT AUTO 88.6 % (41.0-71.0); PLATELET COUNT,PLT 282 K/mm3 (150-400); WHITE BLOOD CELL COUNT,WBC 10.96 K/mm3 (3.9-11.3)
[2024-11-09 21:23] LABS: A/G RATIO 1.2 (1-2); ALBUMIN 4.3 g/dl (3.4-5.0); BILIRUBIN TOTAL 0.4 mg/dL (0.2-1.0); EST CRCL DRUG DOSING (CG) 105.44 mL/min; PROTEIN TOTAL,TP 7.8 g/dl (6.4-8.2)
== END 2024-11-09 23:53 | disposition home or self-care (01) ==
LOC: JD.ED 18:54
DX: J18.9 Pneumonia, unspecified organism (principal); E78.00 Pure hypercholesterolemia, unspecified; Z88.5 Allergy status to narcotic agent; Z79.899 Other long term (current) drug therapy; Z90.49 Acquired absence of other specified parts of digestive tract
CPT/HCPCS: 36415; 71045; 80053; 83605; 85025; 87040; 87428; 96374; 99285; J0696; J7030

== ENCOUNTER 2024-11-10 09:45 | Inpatient (IN) | payer MEDICAID ==
[2024-11-10] MEDS: Albuterol/Ipratropium 3.0-0.5 MG/3 ML Neb Soln NEB ONE ×2 (11:31→12:30)
[2024-11-10] MEDS: Sodium Chloride 0.9% 1,000 ML IV ONE ×2 (11:38→12:44)
[2024-11-10] MEDS: Acetaminophen 325 MG Tab PO ONE (11:38)
[2024-11-10 11:43] LABS: BASOPHILS PERCENT AUTO 0.6 % (0.0-1.0); EOSINOPHILS ABSOLUTE AUTO 0.8 K/mm3 (0.0-0.4); EOSINOPHILS PERCENT AUTO 10.6 % (0.0-6.0); HEMATOCRIT 47.2 % (42.0-52.0); HEMOGLOBIN 16.2 gm/dl (14.0-18.0); IMMATURE GRAN ABSOLUTE AUTO 0.02 K/mm3 (0.00-0.05); IMMATURE GRAN PERCENT AUTO 0.3 % (0.0-0.4); LYMPHOCYTES ABSOLUTE AUTO 0.4 K/mm3 (1.0-4.8); MEAN CORPUSCULAR HEMOGLOBIN 29.1 pg (28.0-32.0); MEAN CORPUSCULAR HGB CONC 34.3 g/dl (32.0-36.0); MEAN CORPUSCULAR VOLUME 84.7 fl (83.0-99.0); MEAN PLATELET VOLUME 9.3 fl (9.4-12.4); MONOCYTES ABSOLUTE AUTO 0.8 K/mm3 (0.0-0.8); MONOCYTES PERCENT AUTO 10.7 % (0.0-8.0); NEUTROPHILS ABSOLUTE AUTO 5.3 K/mm3 (1.8-7.7); NEUTROPHILS PERCENT AUTO 72.8 % (41.0-71.0); PLATELET COUNT,PLT 208 K/mm3 (150-400); RED BLOOD CELL COUNT 5.57 M/mm3 (4.52-5.90); WHITE BLOOD CELL COUNT,WBC 7.26 K/mm3 (3.9-11.3)
[2024-11-10 12:02] LABS: A/G RATIO 1.2 (1-2); ALBUMIN 3.9 g/dl (3.4-5.0); ANION GAP 10.8 (5-15); BILIRUBIN TOTAL 0.3 mg/dL (0.2-1.0); C-REACTIVE PROTEIN 3.4 mg/dL (<0.30); CALCIUM 8.4 mg/dL (8.5-10.1); EST CRCL DRUG DOSING (CG) 108.77 mL/min; POTASSIUM,K 3.8 mEq/L (3.5-5.1); PROTEIN TOTAL,TP 7.2 g/dl (6.4-8.2)
[2024-11-10 12:04] LABS: LACTIC ACID 0.9 mmol/L (0.4-2.0)
[2024-11-10 12:15] LABS: INR 1.09; PROTHROMBIN TIME 11.5 SECONDS (9.7-12.0)
[2024-11-10 12:16] LABS: PTT,PARTIAL THROMBOPLSTIN TIME 32.6 SECONDS (21.7-31.4)
[2024-11-10] MEDS: cefTRIAXone 1 GM Vial IVPUSH ONE (12:35)
[2024-11-10] MEDS: Azithromycin 500 MG in Sodium Chloride 0.9% 250 ML IV SCH (14:24)
[2024-11-10] MEDS: Nicotine 14 MG/24 Hr Patch TRDERM SCH (15:10)
[2024-11-10] MEDS: Acetaminophen 325 MG Tab PO PRN (17:14)
[2024-11-10] MEDS: Amitriptyline 25 MG Tab PO SCH (20:36)
[2024-11-10] MEDS: hydrOXYzine HCl 25 MG Tab PO SCH (20:36)
[2024-11-11 04:46] LABS: BASOPHILS PERCENT AUTO 0.6 % (0.0-1.0); EOSINOPHILS PERCENT AUTO 0.3 % (0.0-6.0); HEMATOCRIT 47.1 % (42.0-52.0); HEMOGLOBIN 16.4 gm/dl (14.0-18.0); IMMATURE GRAN ABSOLUTE AUTO 0.03 K/mm3 (0.00-0.05); IMMATURE GRAN PERCENT AUTO 0.4 % (0.0-0.4); LYMPHOCYTES PERCENT AUTO 14.4 % (24.0-44.0); MEAN CORPUSCULAR HEMOGLOBIN 29.2 pg (28.0-32.0); MEAN CORPUSCULAR HGB CONC 34.8 g/dl (32.0-36.0); MEAN PLATELET VOLUME 9.3 fl (9.4-12.4); MONOCYTES ABSOLUTE AUTO 0.8 K/mm3 (0.0-0.8); MONOCYTES PERCENT AUTO 10.9 % (0.0-8.0); NEUTROPHILS ABSOLUTE AUTO 5.1 K/mm3 (1.8-7.7); NEUTROPHILS PERCENT AUTO 73.4 % (41.0-71.0); PLATELET COUNT,PLT 205 K/mm3 (150-400); RED BLOOD CELL COUNT 5.61 M/mm3 (4.52-5.90)
[2024-11-11 05:19] LABS: ALBUMIN 3.3 g/dl (3.4-5.0); ANION GAP 15.7 (5-15); BILIRUBIN TOTAL 0.3 mg/dL (0.2-1.0); BUN/CREATININE RATIO 8.8 (14-18); C-REACTIVE PROTEIN 3.19 mg/dL (<0.30); CALCIUM 7.7 mg/dL (8.5-10.1); CREATININE 0.8 mg/dL (0.7-1.3); EST CRCL DRUG DOSING (CG) 135.96 mL/min; POTASSIUM,K 3.7 mEq/L (3.5-5.1); PROTEIN TOTAL,TP 6.5 g/dl (6.4-8.2)
[2024-11-11] MEDS: Pantoprazole 40 MG Tab.CR PO SCH (05:52)
[2024-11-11] MEDS: Cetirizine 10 MG Tab PO SCH (09:21)
[2024-11-11] MEDS: Rosuvastatin 10 MG Tab PO SCH (09:21)
[2024-11-11] MEDS: Enoxaparin 40 MG/0.4 ML Syringe SUBCUT SCH (09:21)
[2024-11-11] MEDS: cefTRIAXone 1 GM Vial IVPUSH SCH (11:19)
[2024-11-12 04:37] LABS: BASOPHILS PERCENT AUTO 0.9 % (0.0-1.0); EOSINOPHILS ABSOLUTE AUTO 0.1 K/mm3 (0.0-0.4); EOSINOPHILS PERCENT AUTO 1.6 % (0.0-6.0); HEMATOCRIT 51.3 % (42.0-52.0); HEMOGLOBIN 17.8 gm/dl (14.0-18.0); IMMATURE GRAN ABSOLUTE AUTO 0.01 K/mm3 (0.00-0.05); IMMATURE GRAN PERCENT AUTO 0.2 % (0.0-0.4); LYMPHOCYTES ABSOLUTE AUTO 2.1 K/mm3 (1.0-4.8); LYMPHOCYTES PERCENT AUTO 47.2 % (24.0-44.0); MEAN CORPUSCULAR HEMOGLOBIN 29.1 pg (28.0-32.0); MEAN CORPUSCULAR HGB CONC 34.7 g/dl (32.0-36.0); MEAN PLATELET VOLUME 9.9 fl (9.4-12.4); MONOCYTES ABSOLUTE AUTO 0.6 K/mm3 (0.0-0.8); MONOCYTES PERCENT AUTO 13.1 % (0.0-8.0); NEUTROPHILS ABSOLUTE AUTO 1.6 K/mm3 (1.8-7.7); PLATELET COUNT,PLT 210 K/mm3 (150-400); RED BLOOD CELL COUNT 6.11 M/mm3 (4.52-5.90); WHITE BLOOD CELL COUNT,WBC 4.36 K/mm3 (3.9-11.3)
[2024-11-12 05:25] LABS: ALBUMIN 3.3 g/dl (3.4-5.0); ANION GAP 18.6 (5-15); BILIRUBIN TOTAL 0.3 mg/dL (0.2-1.0); BUN/CREATININE RATIO 11.3 (14-18); C-REACTIVE PROTEIN 1.14 mg/dL (<0.30); CALCIUM 8.1 mg/dL (8.5-10.1); CREATININE 0.8 mg/dL (0.7-1.3); EST CRCL DRUG DOSING (CG) 135.96 mL/min; POTASSIUM,K 3.6 mEq/L (3.5-5.1); PROTEIN TOTAL,TP 6.7 g/dl (6.4-8.2)
== END 2024-11-12 10:10 | disposition home or self-care (01) | DRG 871 ==
LOC: JD.ED 09:45 → JD.MS 13:46
PROVIDERS: ADMIT Family Medicine; ATTEND Family Medicine
DX: A41.9 Sepsis, unspecified organism (principal); J18.9 Pneumonia, unspecified organism; J96.01 Acute respiratory failure with hypoxia; Z88.8 Allergy status to other drugs, medicaments and biological substances; E78.00 Pure hypercholesterolemia, unspecified; K21.9 Gastro-esophageal reflux disease without esophagitis; G89.29 Other chronic pain; G43.909 Migraine, unspecified, not intractable, without status migrainosus; F41.9 Anxiety disorder, unspecified; F15.90 Other stimulant use, unspecified, uncomplicated; F17.210 Nicotine dependence, cigarettes, uncomplicated; J30.9 Allergic rhinitis, unspecified; M54.50 Low back pain, unspecified; Z88.5 Allergy status to narcotic agent; Q85.00 Neurofibromatosis, unspecified; Z79.891 Long term (current) use of opiate analgesic; Z79.51 Long term (current) use of inhaled steroids; Z79.899 Other long term (current) drug therapy; Z79.02 Long term (current) use of antithrombotics/antiplatelets; Z86.16 Personal history of COVID-19; Z90.49 Acquired absence of other specified parts of digestive tract; Z90.89 Acquired absence of other organs; Z98.890 Other specified postprocedural states; Z87.81 Personal history of (healed) traumatic fracture
CPT/HCPCS: 36415; 80053; 83605; 85025; 85610; 85730; 86140; 87040 ×2; 93005; 94640 ×2; 96361; 96374; 99285; A9270; J0696; J7030 ×2; 85379; 93010; 94760; 94761; 99223; 99232; 99239; 99284; J0456; J1650; J7620-GY

== ENCOUNTER 2025-05-25 06:36 | Emergency (ER) | payer MEDICAID ==
[2025-05-25 07:22] LABS: BASOPHILS ABSOLUTE AUTO 0.1 K/mm3 (0.0-0.2); BASOPHILS PERCENT AUTO 0.6 % (0.0-1.0); EOSINOPHILS ABSOLUTE AUTO 0.2 K/mm3 (0.0-0.4); EOSINOPHILS PERCENT AUTO 1.2 % (0.0-6.0); IMMATURE GRAN ABSOLUTE AUTO 0.04 K/mm3 (0.00-0.05); IMMATURE GRAN PERCENT AUTO 0.3 % (0.0-0.4); LYMPHOCYTES ABSOLUTE AUTO 2.1 K/mm3 (1.0-4.8); LYMPHOCYTES PERCENT AUTO 17.2 % (24.0-44.0); MEAN PLATELET VOLUME 9.6 fl (9.4-12.4); MONOCYTES ABSOLUTE AUTO 0.5 K/mm3 (0.0-0.8); MONOCYTES PERCENT AUTO 3.8 % (0.0-8.0); NEUTROPHILS ABSOLUTE AUTO 9.3 K/mm3 (1.8-7.7); NEUTROPHILS PERCENT AUTO 76.9 % (41.0-71.0); NRBC ABSOLUTE 0.00 (0.00-0.02); NRBC PERCENT 0.0 % (0.0-0.2); RED BLOOD CELL COUNT 6.47 M/mm3 (4.52-5.90); WHITE BLOOD CELL COUNT,WBC 12.05 K/mm3 (3.9-11.3)
[2025-05-25 07:24] LABS: PLATELET COUNT,PLT 305 K/mm3 (150-400)
[2025-05-25 07:28] LABS: INR 1.0
[2025-05-25 07:31] LABS: A/G RATIO 1.2 (1-2); ALANINE AMINOTRANSFERASE,ALT 16.0 U/L (16-63); ASPARTATE AMNIOTRANSFERASE,AST 9.0 U/L (15-37); BILIRUBIN TOTAL 0.5 mg/dL (0.2-1.0); BLOOD UREA NITROGEN,BUN 11.0 mg/dL (7-18); CARBON DIOXIDE,CO2 26.0 mEq/L (21-32); CHLORIDE,CL 102.0 mEq/L (98-107); CREATINE KINASE,CK 88.0 U/L (39-308); CREATININE 0.7 mg/dL (0.7-1.3); EST CRCL DRUG DOSING (CG) 155.38 mL/min; ESTIMATED GFR 122.0 mL/min (>60); GLUCOSE RANDOM 112.0 mg/dL (70-99); POTASSIUM,K 4.0 mEq/L (3.5-5.1); PROTEIN TOTAL,TP 7.6 g/dl (6.4-8.2); SODIUM,NA 137.0 mEq/L (136-145)
[2025-05-25 07:36] LABS: ETHANOL BLOOD MEDICAL 0.0 gm% (0.00)
[2025-05-25] MEDS: Ondansetron 4 MG/2 ML SDV IVPUSH ONE ×2 (08:01)
[2025-05-25] MEDS: Sodium Chloride 0.9% 10 ML Syringe FLUSH PRN (08:36)
[2025-05-25] MEDS: Iopamidol 755 Mg/ML 100 ML Bottle IVPUSH ONE (08:36)
== END 2025-05-25 10:55 | disposition home or self-care (01) ==
LOC: JD.ED 06:36
DX: K52.9 Noninfective gastroenteritis and colitis, unspecified (principal); K21.9 Gastro-esophageal reflux disease without esophagitis; F17.200 Nicotine dependence, unspecified, uncomplicated; Z88.8 Allergy status to other drugs, medicaments and biological substances; Z79.899 Other long term (current) drug therapy; Z86.16 Personal history of COVID-19; Z90.49 Acquired absence of other specified parts of digestive tract
CPT/HCPCS: 36415; 71045; 74178; 80053; 80307; 82550; 83690; 83735; 85025; 85610; 86850; 86900; 86901; 96361; 96374; 96375; 99284; J2405; J2470; J7030; Q9967; 99283